=== PATIENT | female | born 1970 | race African-American/Black ===

== ENCOUNTER → 2017-01-27 | Outpatient (CLI) | payer BC ==
--- NOTE | ~2017-01-27 | CR265 ---
[facility] A Service of [facility] RADIOLOGY TEXT RESULTS PATIENT: DUARTE BERNAL LOCATION: [facility] : 70 UNIT #: [id number] AGE: [address]: Georgina Peterson MD SEX: F ORDER DR: [id number] [facility] [address]. [place], [place] [address] [id number] O MR#: [id number] Acc #: [id number] NAME: DUARTE BERNAL : 1970 SEX: F STUDY DATE/TIME: 01/27/2017 9:42 UNIT: [facility] ROOM: STUDY DESCRIPTION: CR Upper GI Series Wo KUB Attending Physician: Georgina Peterson M.D. Referring Physician: Georgina Peterson M.D. Ordering Physician: Georgina Peterson M.D. Primary Care Physician: Carmella Pisano Aprn MEDICAL IMAGING REPORT This report is preliminary unless electronic signature is present EXAM Upper GI series with air contrast 01/27/2017 HISTORY Subxiphoid epigastric pain over the past year with heartburn. TECHNIQUE Using air-contrast technique the esophagus, stomach and proximal small bowel were examined. Fluoroscopy time 2.6 minutes. A total of 30 overhead spot films were obtained. FINDINGS Esophagus shows no evidence of stricture, filling defect or mucosal irregularity. There is no hiatal hernia. Intermittent reflux was observed during the examination. The refluxed barium was cleared with secondary peristalsis. In the stomach there is no evidence of fold thickening, ulceration or mass. The duodenal bulb and sweep have a normal appearance. Visualized proximal small bowel loops are normal. IMPRESSION Gastroesophageal reflux was seen intermittently during examination. This examination is otherwise normal. Dictated by... Neel Bucio M.D. THIS IS AN ELECTRONICALLY VERIFIED REPORT Neel Bucio M.D. at 01/28/2017 10:23 PM Gil [facility] A Service [facility] RADIOLOGY TEXT RESULTS PATIENT: DUARTE BERNAL LOCATION: [facility] : 70 UNIT #: [id number] AGE: [address]: Georgina Peterson MD SEX: F ORDER DR: TD: 01/27/2017 18:07 JOB #: [id number] MEDICAL IMAGING REPORT Page 1 of 1 COPY
== END | disposition home or self-care (01) ==
LOC: CRAD 08:36
DX: R10.13 Epigastric pain (principal); K21.9 Gastro-esophageal reflux disease without esophagitis
CPT/HCPCS: 74240